=== PATIENT | female | born 1950 | race Hispanic/Latino ===

== ENCOUNTER 2017-04-20 17:21 | Emergency (ER) | payer MEDICARE ==
[~2017-04-20] VITALS: Ht 162.6 cm; Wt 108.9 kg
[~2017-04-20 17:21] MED LIST: ALLOPURINOL300 MG PO; ANTIVERT25 MG PEG; ANTIVERT25 MG PO; ASPIR 8181 MG PO; FUROSEMIDE40 MG PO; IBUPROFEN400 MG PO; LISINOPRIL2.5 MG PO; MACROBID 100 M100 MG PO; METFORMIN HCL500 MG PO; METOPROLOL TART25 MG PO; SIMVASTATIN40 MG PO; ZOFRAN ODT4 MG PO
--- NOTE | 2017-04-20 18:46 | Diagnostic Imaging Report ---
Examination: CT BRAIN WITHOUT CONTRAST History:Dizziness, vomiting. Comparison studies:Head CT dated 02/16/2016. Technique: Axial images were obtained from the skull base to the vertex. Coronal and sagittal images reconstructed from the axial data. Intravenous contrast: None Findings: Scalp: No abnormalities. Bones: No fractures, blastic or lytic lesions. Brain sulci: Appropriate for age. Ventricles: Normal in size and configuration. No hydrocephalus. Extra-axial space: No abnormalities. Parenchyma: Again demonstrated are confluent areas of hypoattenuation in the periventricular and subcortical white matter, nonspecific. No masses, hemorrhage, or acute or chronic cortical based vascular insults. Sellar/suprasellar region: No abnormalities. Craniocervical junction: Patent foramen magnum. No Chiari one malformation. Incidental findings: Atherosclerotic calcification of the cavernous and supraclinoid internal carotid arteries. Impression: 1. No new or acute intracranial abnormalities. No change from prior head CT dated 02/16/2016. 2. Unchanged mild chronic microvascular ischemic change. Signed by: Dr. Gema Licona M.D. on 04/20/2017 6:43 PM
[2017-04-20] MEDS ORDERED: ONDANSETRON HCL INJ 2 MG/ML VIAL IV STA (18:49)
[2017-04-20] MEDS ORDERED: ONDANSETRON HCL 4 MG ORAL DISINTEGRATING TAB PO ONE (19:45)
[2017-04-20] MEDS ORDERED: ONDANSETRON HCL 4 MG ORAL DISINTEGRATING TAB ONE (19:46)
[2017-04-20 20:13] LABS: BASOPHILS # (AUTO) 0.1 (0.0-0.1); BASOPHILS % 0.4 % (0.0-1.0); EOSINOPHILS # (AUTO) 0.3 (0.0-0.4); EOSINOPHILS % 2.4 % (0.0-6.0); HEMATOCRIT 41.3 % (34.2-44.1); HEMOGLOBIN 13.6 g/dL (12.0-16.0); LYMPHOCYTES # (AUTO) 1.8 (1.0-3.2); LYMPHOCYTES % 13.3 % (18.0-39.1); MEAN CORPUSCULAR HGB CONC 32.9 g/dL (31-35); MONOCYTES # (AUTO) 0.4 (0.2-0.8); MONOCYTES % 2.9 % (4.4-11.3); NEUTROPHILS # (AUTO) 11.1 (2.1-6.9); NEUTROPHILS % 80.5 % (38.7-80.0); PLATELET COUNT 276 x10e3/uL (140-360); RED BLOOD COUNT 4.54 x10e6/uL (3.6-5.1); RED CELL DISTRIBUTION WIDTH 13.4 % (11.7-14.4)
[2017-04-20 20:33] LABS: ALBUMIN 3.9 g/dL (3.5-5.0); ANION GAP 14.4 mmol/L (8-16); CALCIUM 9.9 mg/dL (8.4-10.2); CREATININE, SERUM 1.09 mg/dL (0.57-1.11)
[2017-04-20 20:34] LABS: POTASSIUM 5.4 mmol/L (3.5-5.1)
[2017-04-20 20:40] LABS: CREATINE KINASE MB 1.6 ng/mL (0.00-5.00); TROPONIN I 0.002 ng/mL (0-0.300)
[2017-04-20 21:17] LABS: BILIRUBIN,URINE NEGATIVE (NEGATIVE); CLARITY,URINE SL CLOUDY (CLEAR); COLOR,URINE YELLOW (YELLOW); KETONES,URINE 1+ (NEGATIVE); LEUKOCYTE ESTERASE ,URINE 2+ (NEGATIVE); NITRITE,URINE NEGATIVE (NEGATIVE); PROTEIN,URINE DIPSTICK TRACE (NEGATIVE); URINE UROBILINOGEN 0.2 mg/dL (0.2 - 1)
[2017-04-20 21:23] VITALS: BP 128/62
[2017-04-20 21:28] LABS: BACTERIA,URINE FEW /HPF; EPITHELIAL CELLS,URINE FEW /LPF
[2017-04-21] MEDS ORDERED: DIAZEPAM 5 MG TAB PO SCH (09:00)
== END 2017-04-20 21:31 | disposition home or self-care (01) ==
LOC: ER 17:21
DX: H81.41 Vertigo of central origin, right ear (principal); N30.00 Acute cystitis without hematuria; I10 Essential (primary) hypertension; E11.9 Type 2 diabetes mellitus without complications; E78.5 Hyperlipidemia, unspecified
CPT/HCPCS: 36415; 70450; 80053; 81001; 82550; 82553; 84484; 85025; 87086; 99283

== ENCOUNTER 2017-11-24 19:38 | Inpatient (IN) | payer MEDICARE ==
[~2017-11-24] VITALS: Ht 160 cm; Wt 108.9 kg
[2017-11-24] MEDS ORDERED: KETOROLAC TROMETHAMINE 60 MG/2 ML VIAL ONE (20:12)
[2017-11-24] MEDS ORDERED: GLIPIZIDE-METF1 EAC2 PO (20:30)
[2017-11-24] MEDS ORDERED: LOSARTAN POTASS25 MG PO (20:30)
[2017-11-24 20:41] LABS: BASOPHILS % 0.2 % (0.0-1.0); EOSINOPHILS # (AUTO) 0.5 (0.0-0.4); EOSINOPHILS % 2.7 % (0.0-6.0); HEMATOCRIT 39.6 % (34.2-44.1); HEMOGLOBIN 12.9 g/dL (12.0-16.0); LYMPHOCYTES # (AUTO) 3.1 (1.0-3.2); LYMPHOCYTES % 17.7 % (18.0-39.1); MEAN CORPUSCULAR HEMOGLOBIN 30.1 pg (28-32); MEAN CORPUSCULAR HGB CONC 32.6 g/dL (31-35); MEAN CORPUSCULAR VOLUME 92.3 fL (81-99); MONOCYTES # (AUTO) 1.1 (0.2-0.8); MONOCYTES % 6.4 % (4.4-11.3); NEUTROPHILS # (AUTO) 12.6 (2.1-6.9); NEUTROPHILS % 72.7 % (38.7-80.0); PLATELET COUNT 275 x10e3/uL (140-360); RED BLOOD COUNT 4.29 x10e6/uL (3.6-5.1); RED CELL DISTRIBUTION WIDTH 14.1 % (11.7-14.4)
[2017-11-24 20:50] LABS: CLARITY,URINE CLOUDY (CLEAR); COLOR,URINE YELLOW (YELLOW)
[2017-11-24 20:51] LABS: BILIRUBIN,URINE 1+ (NEGATIVE); KETONES,URINE TRACE (NEGATIVE); LEUKOCYTE ESTERASE ,URINE 2+ (NEGATIVE); NITRITE,URINE NEGATIVE (NEGATIVE); PROTEIN,URINE DIPSTICK 2+ (NEGATIVE); URINE UROBILINOGEN 1 mg/dL (0.2 - 1)
[2017-11-24 20:55] LABS: BACTERIA,URINE MODERATE /HPF; EPITHELIAL CELLS,URINE RARE /LPF; MUCUS,URINE FEW (RARE); RBC,URINE 21-50 /HPF (0-5); WBC,URINE (MAN) 21-50 /HPF (0-5)
[2017-11-24 20:58] LABS: ALBUMIN 3.3 g/dL (3.5-5.0); ALBUMIN/GLOBULIN RATIO 0.9 (0.8-2.0); ANION GAP 16.2 mmol/L (8-16); CALCIUM 9.4 mg/dL (8.4-10.2); CREATININE, SERUM 1.73 mg/dL (0.57-1.11); POTASSIUM 4.2 mmol/L (3.5-5.1)
[2017-11-24] MEDS ORDERED: SODIUM CHLORIDE 0.9% 1000ML 1,000 ML IV SCH (21:30)
[2017-11-24] MEDS ORDERED: CEFTRIAXONE SOD 1 GM VIAL IM ONE (21:30)
[2017-11-24] MEDS ORDERED: DIATRIZOATE MEGL/DIATRIZOA SOD 30 ML BTL PO ONE (21:35)
[2017-11-24 21:44] LABS: AMYLASE 59 U/L (25-125); LIPASE 14 U/L (8-78)
[2017-11-24] MEDS ORDERED: CEFTRIAXONE SOD 1 GM VIAL IV ONE (21:45)
--- NOTE | 2017-11-24 22:50 | Diagnostic Imaging Report ---
EXAM: CT ABDOMEN/PELVIS WO DATE: 11/24/2017 9:24 PM INDICATION: \S\abd pain/vag bleed- IV contrast only \[id number] \S\[id number] COMPARISON: 03/15/2016 TECHNIQUE: The abdomen and pelvis were scanned using a multidetector helical scanner. Coronal and sagittal reformations were obtained. IV Contrast: 0 ml Isovue 300/370 FINDINGS: Lack of IV contrast decreases sensitivity in evaluating abdominal and pelvic organs. LOWER THORAX: No consolidations. Partially imaged pacing leads and mitral annulus calcifications. LIVER/BILIARY: Probable hepatic steatosis (HU 36, less than 40). Otherwise grossly unremarkable noncontrast appearance. GALLBLADDER: Cholecystectomy SPLEEN: Unremarkable PANCREAS: Unremarkable ADRENALS: No nodules KIDNEYS: No stones. No hydronephrosis. GI TRACT: No wall thickening or evidence of obstruction. Normal appendix. Diverticulosis. VESSELS: Atherosclerotic calcifications are noted, diffuse of the branch vessels. PERITONEUM/RETROPERITONEUM: No free air or fluid LYMPH NODES: No lymphadenopathy REPRODUCTIVE ORGANS/BLADDER: Prominent uterine size, similar to prior. Unremarkable bladder SOFT TISSUES: Rectus muscle diastases BONES: Multilevel degenerative changes. IMPRESSION: 1. No acute abnormality on noncontrast evaluation. 2. Prominent uterine size for age. Given vaginal bleeding, consider follow-up pelvic ultrasound. Signed by: Dr Palak Gorman MD on 11/24/2017 10:47 PM
--- NOTE | 2017-11-24 23:14 | Diagnostic Imaging Report ---
EXAM: US TRANSVAGINAL INDICATION: \S\VAG BLEEDING COMPARISON: None TECHNIQUE: Grayscale transverse and sagittal transabdominal and transvaginal images were obtained of the pelvis. Transvaginal images were necessary to better assess anatomic detail. The ovaries were examined with grayscale, color Doppler, and spectral waveform analysis. FINDINGS: Uterus Orientation: Normal Size: 11.1 x 6.4 x 6.7 cm Mass: None Cervix: Normal Endometrium: Thickness: 4.4 cm, markedly thickened. Appearance: Heterogeneous echotexture without focal thickening. Mild internal vascularity. Right ovary: Not visualized. Left ovary: Not visualized. Adnexa: No masses Cul-de-sac: No free fluid IMPRESSION: Markedly thickened endometrial stripe. Differential includes endometrial hyperplasia, polyps, or neoplasm. Recommend gynecology consult and tissue sampling. Signed by: Dr Palak Gorman MD on 11/24/2017 11:10 PM
[2017-11-25] VITALS (9 sets, daily range): BP systolic 72–133; BP diastolic 41–75
[2017-11-25] MEDS ORDERED: ONDANSETRON HCL INJ 2 MG/ML VIAL IV PRN ×2 (00:15→12:00)
[2017-11-25] MEDS ORDERED: MORPHINE SULFATE 2 MG/ML SYR IV PRN (00:15)
[2017-11-25] MEDS ORDERED: SODIUM CHLORIDE 0.9% 1000ML 1,000 ML IV ONE (03:33)
[2017-11-25 06:18] LABS: BASOPHILS % 0.2 % (0.0-1.0); EOSINOPHILS # (AUTO) 0.5 (0.0-0.4); EOSINOPHILS % 3.7 % (0.0-6.0); HEMATOCRIT 35.5 % (34.2-44.1); HEMOGLOBIN 11.6 g/dL (12.0-16.0); LYMPHOCYTES # (AUTO) 2.4 (1.0-3.2); LYMPHOCYTES % 16.5 % (18.0-39.1); MEAN CORPUSCULAR HEMOGLOBIN 29.9 pg (28-32); MEAN CORPUSCULAR HGB CONC 32.7 g/dL (31-35); MEAN CORPUSCULAR VOLUME 91.5 fL (81-99); MONOCYTES # (AUTO) 1.3 (0.2-0.8); MONOCYTES % 8.8 % (4.4-11.3); NEUTROPHILS # (AUTO) 10.2 (2.1-6.9); NEUTROPHILS % 70.4 % (38.7-80.0); PLATELET COUNT 247 x10e3/uL (140-360); RED BLOOD COUNT 3.88 x10e6/uL (3.6-5.1); RED CELL DISTRIBUTION WIDTH 14.1 % (11.7-14.4)
[2017-11-25 06:38] LABS: ALBUMIN/GLOBULIN RATIO 0.9 (0.8-2.0); CALCIUM 9.1 mg/dL (8.4-10.2); CREATININE, SERUM 1.25 mg/dL (0.57-1.11)
[2017-11-25] MEDS ORDERED: ACETAMINOPHEN 325 MG TAB PO PRN (09:45)
[2017-11-25] MEDS ORDERED: DEXTROSE 50% SYRINGE 50 ML IV PRN (09:45)
[2017-11-25] MEDS: CEFTRIAXONE SOD 1 GM VIAL IV SCH ×2 (10:57→21:04)
--- NOTE | 2017-11-25 12:29 | History and Physical ---
CHIEF COMPLAINT: Vaginal bleeding. HISTORY OF PRESENT ILLNESS: A 67-year-old female morbidly obese with known type 2 diabetes and hypertension who has had this vaginal bleeding ongoing for the last 6 months in which she recently saw a [facility] TECHNICIAN doctor several months ago and at that time was supposed to do a "surgery," but was found to be hypokalemic and surgery was deferred. Patient reports that she was given some sort of medicine by the OB-[facility]AT[facility] TECHNICIAN doctor and her vaginal bleeding stopped and she did not follow up with that physician. Today, she reports having vaginal bleeding ongoing for the last 2 weeks. She reports having heavy vaginal bleeding. She denies any chest pain, palpitations, fever, cough, congestion, or any other complaints. Patient did not call her PCP or her OB-[facility] TECHNICIAN and felt it was much easier just to come to the ER to be further evaluated. Here imaging study, the ultrasound shows enlargement of her endometrium. Patient was seen and evaluated at bedside on the medical floor and currently doing well with no other complaints. Vital signs were stable. Hemoglobin was stable as well. Patient is still having continuous vaginal bleeding according to the nursing staff. REVIEW OF SYSTEMS PERTINENT POSITIVE: Vaginal bleeding. PERTINENT NEGATIVE: Denies any chest pain, palpitation, nausea, vomiting, diarrhea, dysuria, hematuria, frequency, urgency, lightheadedness, dizziness, abdominal pain, headache, shortness of breath, cough, congestion, fever, or any other complaints. The rest of 14-point review of systems have been reviewed with the patient and are negative. ALLERGIES: MINOCYCLINE AND PENICILLIN. HOME MEDICATIONS: Furosemide 40 mg daily, lisinopril 5 mg daily, metoprolol tartrate 25 mg p.o. b.i.d., simvastatin 40 mg daily, aspirin 81 mg daily, allopurinol 300 mg daily, glipizide metformin 5/500 one tab p.o. t.i.d., and meclizine 25 mg daily. PAST MEDICAL HISTORY: Hypertension, dizziness, diabetes, morbidly obese, and vaginal bleeding. SURGICAL HISTORY: Reports none. FAMILY: Hypertension and diabetes. SOCIAL HISTORY: No drugs. No alcohol. Does not smoke. . Good social support. VITAL SIGNS: Temperature is 99, pulse 99, respiratory rate is 18, blood pressure is 110/50, and pulse ox is 93% on room air. LAB FINDINGS: White count of 14.5, hemoglobin is 11.6, hematocrit is 35.5, and platelets of 247. Chemistry: Sodium , potassium is 4, chloride 107, bicarb 23, anion gap of 15, BUN is 25, creatinine is 1.2, glucose 140, and calcium 9.1. Total bilirubin is 0.4, AST 9, ALT 6, and albumin is 3. Lipase is 14. Urinalysis shows many rbc's and many wbc's. MICROBIOLOGY: Urine culture is pending. IMAGING STUDIES: Transvaginal ultrasound shows prominent uterine size for age with evidence of vaginal bleeding. CT abdomen and pelvis showed enlarged uterus. Transvaginal ultrasound shows markedly thickened endometrial stripe and [employer] [employer] TECHNICIAN consult recommended. PHYSICAL EXAM GENERAL: Not in acute distress, alert and oriented x3, cooperative on exam. HEENT: Head: Normocephalic, atraumatic. Eyes: Pupils equal and reactive to light bilaterally. Extraocular movements intact bilaterally. NECK: Supple with good range of motion throughout. No evidence of any erythema or exudates in the posterior pharynx, has poor dentition. PULMONARY: Clear to auscultation bilaterally. No wheezing, no rales, no rhonchi. No crackles appreciated. CARDIOVASCULAR: Positive S1 and S2. No murmurs, rubs, or gallops appreciated. ABDOMEN: Soft, nondistended, nontender to palpation. Bowel sounds present. MUSCULOSKELETAL: Strength is 5/5 throughout. No evidence of any musculoskeletal deficit on examination. No weakness appreciated. NEUROLOGIC: Cranial nerves II-XII grossly intact. No evidence of any neurologic deficits on exam. SKIN: Intact. Warm to touch. Good cap refill. PSYCHIATRIC: Normal affect and mood. EXTREMITIES: No edema. Good range of motion throughout. IMPRESSION 1. Vaginal bleeding ongoing for more than 2 weeks now. 2. Type 2 diabetes. 3. Hypertension. 4. Acute kidney injury secondary to prerenal azotemia from dehydration. 5. Urinary tract infection. PLAN: At this time, the patient will be on IV antibiotics for probable UTI. Monitor urine cultures. We will consult with OB[facility] TECHNICIAN in relation to her vaginal bleeding and follow the recommendations. In relation to acute kidney injury, it is currently resolved and will continue to monitor. Put on insulin sliding scale for her diabetes and resume all her antihypertensive medications at home. We are going hold all blood thinners including aspirin at this time due to the vaginal bleeding. We are going put VLADISLAV hosharley for DVT prophylaxis. She is currently on a diabetic diet as well. Otherwise, once we get recommendations from [employer] [employer] TECHNICIAN, we can determinate next plan of course, course of action. We will get a.m. labs. Job#: [id number] SADA
[2017-11-25] MEDS: METOPROLOL TARTRATE 25 MG TAB PO SCH (17:01)
--- NOTE | 2017-11-25 19:11 | Consultation ---
DATE OF CONSULTATION: November 25, 2017 CARDIOLOGY CONSULTATION REASON FOR CONSULTATION: History of CHF and hypertension. CHIEF COMPLAINT: Vaginal bleeding. HISTORY OF PRESENT ILLNESS: Patient is a 67-year-old female with history of a weak heart, per the patient, diagnosed 14 years ago when she was feeling unwell. At that time, she had a defibrillator placed and she has had several generator changes since then. She has never been shocked, as far as she knows. She is unsure how weak her heart was and when her most recent echocardiogram was. Denied ever having any RI or history of cardiac catheterization. Denies orthopnea, PND or lower extremity edema. Her chief complaint on presentation was vaginal bleeding which has been worsening for which she is admitted to be evaluated by SHE[facility]. REVIEW OF SYSTEMS: Is as above, otherwise negative. PAST MEDICAL HISTORY: Hypertension and hyperlipidemia. Chronic systolic heart failure. Diabetes, morbid obesity, vaginal bleeding. PAST SURGICAL HISTORY: None. FAMILY HISTORY: Hypertension and diabetes. SOCIAL HISTORY: Denies any smoking, alcohol or drug use. PHYSICAL EXAMINATION: VITALS: Temperature 99, pulse 99, respiratory rate 18, blood pressure 110/50, satting 93% on room air. EYES: Conjunctivae clear. EARS, NOSE, MOUTH AND THROAT: Normal mucosa, no pallor or bleeding. NECK: Could not assess jugular venous distention due to body habitus. MUSCULOSKELETAL: Normal muscle tone and strength, no atrophy or abnormal movements. EXTREMITIES: No clubbing or cyanosis. SKIN: No venostasis changes or ulcers. GENERAL: Well-developed, well-nourished, obese female. CARDIOVASCULAR: PMI could not be palpated due to body habitus. Regular S1 and S2. No murmurs, rubs or gallops. Normal carotid pulses. Palpable femoral pulses. Palpable pedal pulses. No peripheral edema or varicosities. RESPIRATORY: No respiratory distress. Lungs are clear to auscultation bilaterally. ABDOMEN: Soft nontender, no masses. NEURO AND PSYCH: Alert and oriented to person, place and time. Normal affect. HOME MEDICATIONS AND CURRENT INPATIENT MEDICATIONS: Reviewed. LABORATORY DATA: Reviewed. IMAGING DATA: Reviewed. TELEMETRY: Reviewed. Normal sinus rhythm. ASSESSMENT: 1. Chronic systolic heart failure. 2. Vaginal bleeding. 3. Hypertension. 4. Morbid obesity. 5. Hyperlipidemia. PLAN: Continue her home CHF medications, metoprolol 25 mg daily, lisinopril 5 mg daily and Lasix 40 mg daily. Will get echocardiogram to evaluate her LV function. Volume status is very difficult to assess given the patient's body habitus, but appears euvolemic at this time. No aspirin or anticoagulation given. Ongoing bleeding and no prior history of coronary artery disease. Thank you for this consult. We will continue to follow. Job#: [id number] ANTONIO
[2017-11-25] MEDS: SIMVASTATIN 40 MG TAB PO SCH (20:58)
[2017-11-26] VITALS (7 sets, daily range): BP systolic 87–113; BP diastolic 50–65
[2017-11-26 05:13] LABS: BASOPHILS % 0.3 % (0.0-1.0); EOSINOPHILS # (AUTO) 0.4 (0.0-0.4); HEMATOCRIT 34.8 % (34.2-44.1); HEMOGLOBIN 11.3 g/dL (12.0-16.0); LYMPHOCYTES # (AUTO) 2.1 (1.0-3.2); LYMPHOCYTES % 14.4 % (18.0-39.1); MEAN CORPUSCULAR HEMOGLOBIN 30.1 pg (28-32); MEAN CORPUSCULAR HGB CONC 32.5 g/dL (31-35); MEAN CORPUSCULAR VOLUME 92.8 fL (81-99); MONOCYTES # (AUTO) 1.1 (0.2-0.8); MONOCYTES % 7.8 % (4.4-11.3); NEUTROPHILS # (AUTO) 10.8 (2.1-6.9); NEUTROPHILS % 74.1 % (38.7-80.0); PLATELET COUNT 199 x10e3/uL (140-360); RED BLOOD COUNT 3.75 x10e6/uL (3.6-5.1); RED CELL DISTRIBUTION WIDTH 13.9 % (11.7-14.4)
[2017-11-26 05:41] LABS: ANION GAP 15.3 mmol/L (8-16); BLOOD UREA NITROGEN 15 mg/dL (7-26); BUN/CREATININE RATIO 18 (6-25); CALCIUM 9.2 mg/dL (8.4-10.2); CARBON DIOXIDE 22 mmol/L (22-29); CHLORIDE 105 mmol/L (98-107); CREATININE, SERUM 0.84 mg/dL (0.57-1.11); EST GLOMERULAR FILTRATION RATE > 60 ML/MIN (60-); GLUCOSE 143 mg/dL (74-118); POTASSIUM 4.3 mmol/L (3.5-5.1); SODIUM 138 mmol/L (136-145)
[2017-11-26 07:30] LABS: PLATELET ESTIMATE ADEQUATE; PLATELET MORPHOLOGY COMMENT NORMAL; RBC MORPHOLOGY COMMENT NORMAL
[2017-11-26] MEDS: LISINOPRIL 2.5 MG TAB PO SCH (09:00)
[2017-11-26] MEDS: METOPROLOL TARTRATE 25 MG TAB PO SCH ×2 (09:00→17:00)
[2017-11-26] MEDS: FUROSEMIDE 40 MG TAB PO SCH (09:00)
[2017-11-26] MEDS: CEFTRIAXONE SOD 1 GM VIAL IV SCH ×2 (10:00→21:51)
--- NOTE | 2017-11-26 14:39 | Progress Note ---
DATE: November 26, 2017 CARDIOLOGY PROGRESS NOTE SUBJECTIVE: No major events overnight. No chest pain, shortness of breath, orthopnea or PND. REVIEW OF SYSTEMS: Significant for vaginal bleeding, otherwise as above. OBJECTIVE VITAL SIGNS: Temperature 97.2, heart rate 71, respiratory rate 20, blood pressure 104/55, satting 96% on room air. GENERAL: A well-developed, obese female. CARDIOVASCULAR: PMI could not be palpated due to body habitus. Regular S1/S2. No murmurs, rubs or gallops. Normal carotid pulses. Palpable femoral pulses. Palpable pedal pulses. No peripheral edema or varicosities. RESPIRATORY: No respiratory distress. Lungs are clear to auscultation bilaterally. ABDOMEN: Soft, nontender. NEURO AND PSYCH: Alert and oriented to person, place and time. Normal affect. CURRENT INPATIENT MEDICATIONS: Reviewed. LABORATORY DATA: Reviewed. IMAGING DATA: Reviewed. TELEMETRY DATA: Reviewed. Normal sinus rhythm. ECHOCARDIOGRAM: Done today, reviewed. A technically very difficult study. However, grossly normal LV size and function with marked concentric LV hypertrophy. LVEF estimated to be approximately 60%. No hemodynamically significant valvular abnormalities noted by Doppler exam. ASSESSMENT 1. Chronic systolic heart failure. 2. Vaginal bleeding. 3. Hypertension. 4. Morbid obesity. 5. Hyperlipidemia. PLAN: Continue her home cardiovascular medications. Echocardiogram shows grossly normal LV function. Currently euvolemic. No aspirin or anticoagulation given ongoing bleeding. No prior history of coronary artery disease. Thank you for this consult. Will continue to follow. Job#: [id number] KAREN
[2017-11-26] MEDS: SIMVASTATIN 40 MG TAB PO SCH (21:51)
[2017-11-27 00:16] VITALS: BP 90/46
[2017-11-27 00:45] VITALS: BP 93/49
[2017-11-27 05:03] VITALS: BP 93/41
[2017-11-27 05:27] LABS: BASOPHILS % 0.3 % (0.0-1.0); EOSINOPHILS # (AUTO) 0.5 (0.0-0.4); EOSINOPHILS % 3.9 % (0.0-6.0); HEMATOCRIT 35.2 % (34.2-44.1); HEMOGLOBIN 11.7 g/dL (12.0-16.0); LYMPHOCYTES # (AUTO) 2.6 (1.0-3.2); LYMPHOCYTES % 21.5 % (18.0-39.1); MEAN CORPUSCULAR HEMOGLOBIN 30.2 pg (28-32); MEAN CORPUSCULAR HGB CONC 33.2 g/dL (31-35); MONOCYTES % 7.9 % (4.4-11.3); NEUTROPHILS % 65.7 % (38.7-80.0); PLATELET COUNT 247 x10e3/uL (140-360); RED BLOOD COUNT 3.87 x10e6/uL (3.6-5.1); RED CELL DISTRIBUTION WIDTH 13.6 % (11.7-14.4)
[2017-11-27 08:00] VITALS: BP 103/75
[2017-11-27] MEDS: LISINOPRIL 2.5 MG TAB PO SCH (09:00)
[2017-11-27] MEDS: METOPROLOL TARTRATE 25 MG TAB PO SCH (09:00)
[2017-11-27] MEDS: FUROSEMIDE 40 MG TAB PO SCH (09:00)
[2017-11-27] MEDS: CEFTRIAXONE SOD 1 GM VIAL IV SCH (10:00)
--- NOTE | 2017-11-27 11:54 | Discharge Summary ---
DISCHARGE DIAGNOSES: 1. Vaginal bleeding with endometrial thickening. Patient was evaluated by [facility]IM[facility] CARETAKER after 2 days and recommends outpatient endometrial sampling. 2. Type 2 diabetes. 3. Hypertension. 4. Acute kidney injury secondary to dehydration. CONSULTANTS: Cardiology and [facility]ETAKER. VITAL SIGNS: Temperature is 97.6, pulse is 75, respiratory rate is 18, blood pressure 100/50, pulse ox 97% on room air. LAB FINDINGS: Show a white count of 12, hemoglobin 11.7, hematocrit is 35, MCV 91, platelets of 247. Chemistry: Sodium 138, potassium is 4.3, chloride is 105, bicarb is 22, anion gap of 15 which is normal, BUN 15, creatinine was 0.8, glucose 147, calcium is 9.2. Total bilirubin is 0.4. LFTs were normal. Lipase was 14. Albumin 3. Urinalysis: WBCs 21-50, RBCs 21-50, leukocyte esterase 2+, blood 3+. MICROBIOLOGY: Urine cultures showed mixed gerardo contamination. IMAGING STUDIES: Transvaginal ultrasound showed markedly thickened endometrial strip. CT abdomen and pelvis: No acute abnormality on noncontrast evaluation. Prominent uterine size for age. HOSPITAL COURSE: A 67-year-old female, morbidly obese with known type 2 diabetes, who has been dealing with vaginal bleeding ongoing for 6 months now. Patient reports that she came in to have her vaginal bleeding further evaluated. She had seen an OB-WILD [facility]IMAL CARETAKER earlier this year about 6 months ago and did not follow up accordingly with that laborer shellfish processing. She does not know the name of her OB-[facility]AL CARETAKER doctor, and instead we consulted another physician to come evaluate the patient. Patient was not evaluated until a little less than 48 hours after initial consultation to be further evaluated. Final recommendations were for her to do an endometrial sampling in the office due to her comorbidities though the patient's comorbidities will not change even on discharge. Cardiology was consulted for clearance because in the event the patient needed a D\T\C, but instead it was not performed and wants to do an outpatient endometrial sampling. While here, patient did well with no complaints. She does have some evidence of vaginal bleeding according to the nursing staff, but her hemoglobin maintained stable. On discharge it was 11.7. At this time, the patient will be under observation and not inpatient. There was a delay by the OB-[facility]IMAL CARETAKER service to evaluate the patient on a prompt time period. On discharge the patient is doing well with no other complaints. She is back to baseline with no other issues. Patient does not have a UTI based on the microbiology results being a contaminant. On the day of discharge, vital signs stable, labs reviewed and stable. Patient seen and evaluated and examined thoroughly on the day of discharge with no other complaints. Patient verbalized understanding and agrees to plan of care, to follow up accordingly as an outpatient with her primary care physician in 1 week and especially OB-[facility] CARETAKER on Wednesday on November 29, 2017, in which the information, address and phone number have been given to the patient in order for her to call and make an appointment. DISCHARGE MEDICATIONS: See med reconciliation form. DISPOSITION: To home. CONDITION: Stable. DIET: Heart healthy diabetic. FOLLOWUP: With her PCP in 1 week and OB-[facility]IM[facility] CARETAKER on November 29, 2017, on Wednesday. In the event of any worsening symptoms, patient advised to come back to the ED for further evaluation. Discharge summary took greater than 35 minutes. USMAN BOWEN MD Job#: [id number] EV
[2017-11-27 12:00] VITALS: BP 127/61
[2017-11-28 08:00] VITALS: BP 106/73
== END 2017-11-27 11:55 | disposition home or self-care (01) | DRG 760 ==
LOC: ER 19:38 → ERHOLD 11-25 00:15 → MED/SURG2 11-25 01:35
PROVIDERS: ADMIT Internal Medicine; ATTEND Internal Medicine
DX: N95.0 Postmenopausal bleeding (principal); N17.9 Acute kidney failure, unspecified; I50.22 Chronic systolic (congestive) heart failure; Z68.41 Body mass index [BMI] 40.0-44.9, adult; E11.9 Type 2 diabetes mellitus without complications; E86.0 Dehydration; N93.9 Abnormal uterine and vaginal bleeding, unspecified; I11.0 Hypertensive heart disease with heart failure; E78.5 Hyperlipidemia, unspecified; E66.01 Morbid (severe) obesity due to excess calories
CPT/HCPCS: 36415; 74176; 76830; 80048; 80053; 81001; 82150; 82948; 83690; 85025; 87086; 93306; 96361; 99284; J0696; J1885; J7030

== ENCOUNTER 2019-07-13 20:39 | Observation (INO) | payer MEDICARE ==
[~2019-07-13] VITALS: Ht 160 cm; Wt 115.7 kg
[~2019-07-13 20:39] MED LIST changes: +GLIMEPIRIDE2 MG PO; +GLIPIZIDE-METF1 EAC2 PO; +LEVOTHYROXINE50 MCG PO; +LISINOPRIL10 MG PO; +LOSARTAN POTASS25 MG PO; +NAPROXEN250 MG PO; +PIOGLITAZONE HC45 MG PO
[2019-07-13] MEDS ORDERED: FUROSEMIDE INJ 10 MG/ML 4 ML VIAL IV ONE (20:45)
[2019-07-13 20:54] LABS: BASOPHILS % 0.2 % (0.0-1.0); EOSINOPHILS # (AUTO) 0.2 (0.0-0.4); EOSINOPHILS % 3.3 % (0.0-6.0); HEMATOCRIT 39.5 % (34.2-44.1); HEMOGLOBIN 12.2 g/dL (12.0-16.0); LYMPHOCYTES # (AUTO) 1.7 (1.0-3.2); LYMPHOCYTES % 28.5 % (18.0-39.1); MEAN CORPUSCULAR HEMOGLOBIN 29.8 pg (28-32); MEAN CORPUSCULAR HGB CONC 30.9 g/dL (31-35); MEAN CORPUSCULAR VOLUME 96.6 fL (81-99); MONOCYTES # (AUTO) 0.6 (0.2-0.8); MONOCYTES % 9.7 % (4.4-11.3); NEUTROPHILS # (AUTO) 3.5 (2.1-6.9); NEUTROPHILS % 58.1 % (38.7-80.0); PLATELET COUNT 200 x10e3/uL (140-360); RED BLOOD COUNT 4.09 x10e6/uL (3.6-5.1); RED CELL DISTRIBUTION WIDTH 14.4 % (11.7-14.4)
--- NOTE | 2019-07-13 21:14 | NUR ---
notified of low BP at this time. Instructed not to administer 40 mg IV lasix at this time. Patient did take 40 mg in the morning and 40 mg at 1700.
[2019-07-13 21:15] LABS: ALBUMIN 3.6 g/dL (3.5-5.0); ANION GAP 11.7 mmol/L (8-16); CREATININE, SERUM 1.62 mg/dL (0.57-1.11); POTASSIUM 4.7 mmol/L (3.5-5.1)
[2019-07-13 21:21] LABS: CREATINE KINASE MB 0.5 ng/mL (0-5.0)
--- NOTE | 2019-07-13 22:22 | Diagnostic Imaging Report ---
EXAMINATION: CHEST 2 VIEWS INDICATION: Cough. Shortness of breath. COMPARISON: None FINDINGS: TUBES and LINES: None. Dual lead left-sided cardiac pacemaker. LUNGS: Lungs are well inflated. There are bibasilar atelectasis. Patchy density in the retrocardiac region on the lateral view may represent atelectasis versus infection in the proper clinical setting. There is mild prominence of the central pulmonary vasculature, consistent with pulmonary venous congestion. PLEURA: No pleural effusion or pneumothorax. HEART AND MEDIASTINUM: Cardiac size is moderately enlarged. There are atherosclerotic calcifications within the aorta. Widening of the mediastinum. BONES AND SOFT TISSUES: There are degenerative changes in the thoracic spine. Soft tissues are unremarkable. UPPER ABDOMEN: No free air under the diaphragm. IMPRESSION: 1. Bilateral pulmonary venous congestion. 2. Patchy density in the retrocardiac region on the lateral view may represent atelectasis versus infection in the proper clinical setting Signed by: Dr. Asad Kumar M.D. on 07/13/2019 10:18 PM
--- NOTE | 2019-07-13 22:28 | NUR ---
Patient noted to be tachypneic with exertion. MD notified.
[2019-07-13] MEDS ORDERED: CEFTRIAXONE SOD 1 GM/NS 50 ML 50 ML IV SCH (22:30)
[2019-07-13] MEDS ORDERED: AZITHROMYCIN 500MG/NS 250 ML 250 ML IV STA (22:30)
[2019-07-13 23:30] VITALS: BP 137/66
--- NOTE | 2019-07-13 23:51 | NUR ---
patient arrived to the floor from ER, turkish speaking primarily, using terrazzo worker ipad, oriented X 3, awake alert oriented to room, staff and environment, full assessment completed, home med reconciled, patient up with standby assistance, bed alarm acitvated, call light within reach, report no chest pain at this time
[2019-07-14] VITALS (10 sets, daily range): BP systolic 105–137; BP diastolic 53–72
[2019-07-14] MEDS: CEFTRIAXONE SOD 1 GM/NS 50 ML 50 ML IV SCH (04:31)
[2019-07-14] MEDS ORDERED: AZITHROMYCIN 500MG/NS 250 ML 250 ML IV SCH (06:00)
[2019-07-14] MEDS ORDERED: LEVOTHYROXINE SODIUM 25 MCG TABLET PO SCH (06:00)
--- NOTE | 2019-07-14 06:19 | NUR ---
H&P cc: cough/sob HPI: 69yoF, PCP , developed cough/sob, found to have retrocardiac PNA. PMH: syncope, vaginal bleeding, Chr Systolic CHF, Hypertensive heart ds, CKD3 due to DM2, hypothyroidism, gout PSHx: cholecystectomy, hysterectomy, PPM 2004 Allergies; see emr Fh/SH: ; no cigs Meds; see MAR ROS: no cp/f/c/s/N/V/D/ROCK/vision changes/skin rash/focal limb weakness/confusion v/s revd PE tired appearing anicteric ns1s2 reduced bs;Left>right soft nt nd no e/t skin dry flat affect alert and appropriate labs/meds revd A/P: 69yoF Left PNA- ceftriaxone/azithromycin CKD3 due to DM2- at baseline; hba1c/lipids CHronic systolic CHF- monitor fluid balance; lasix Hypertensive heart ds- cont home meds HLD- statin Hypothyroidism- cont synthroid Gout- cont allopurinol Physical deconditioning- PT Prop: heparin/pepcid dispo: flu screen Kali Waggoner MD, PhD.
[2019-07-14] MEDS ORDERED: DEXTROSE 50% SYRINGE 50 ML IV PRN (07:45)
[2019-07-14] MEDS ORDERED: METOPROLOL TARTRATE 25 MG TAB PO SCH (09:00)
[2019-07-14] MEDS: LORATADINE 10 MG TAB PO SCH (09:20)
[2019-07-14] MEDS: ASPIRIN 81 MG CHEW TAB PO SCH (09:20)
[2019-07-14] MEDS: INSULIN LISPRO 100 UNIT/1 ML 3ML VIAL SQ SCH ×3 (09:21→21:00)
[2019-07-14] MEDS: BENZONATATE 100 MG CAP PO SCH ×3 (09:21→21:23)
[2019-07-14] MEDS: ALLOPURINOL 300 MG TAB PO SCH (09:21)
[2019-07-14] MEDS: HEPARIN SOD (PORCINE) 5,000 UNIT/ML VIAL SC SCH ×2 (09:26→22:00)
[2019-07-14] MEDS: FUROSEMIDE 40 MG TAB PO SCH (10:15)
[2019-07-14] MEDS: GUAIFENESIN/DEXTROMETHORPHAN LIQD 5 ML UDC NG SCH ×2 (14:00→22:00)
--- NOTE | 2019-07-14 14:14 | NUR ---
WOUND CARE CONSULTATION PUP SCREEN RE: LOW ELIOT SCORE LOS=1 DAY Age=69 Eliot Score = 13 Visco Mattress Conservative PUP RECOMMENDATION: - Alternating Pressure Air Mattress - Bilateral Heel Protectors / Offload Heels with Pillows - Turn and Reposition Every 2 Hours Addendum: 07/14/19 at 1417 by Linda Garces RN Amended: Links added.
--- NOTE | 2019-07-14 17:00 | NUR ---
Pt will benefit from a RW for home use to improve gait safety upon D/C. Addendum: 07/14/19 at 2352 by Anthony Welch PT Amended: Links added.
--- NOTE | 2019-07-14 19:10 | NUR ---
Report given to oncoming nurse of patient's status. Resting in bed. No s/s of acute distress noted. Side rails upx2, call light within reach.
--- NOTE | 2019-07-14 19:15 | NUR ---
Patient received sitting up in bed. AAO x 3. Patient had no complaints of pain. Respirations even and non-labored . Safety measures in place. Patient instructed to call for assistance when needed. Call light within reach.
[2019-07-14] MEDS ORDERED: SIMVASTATIN 40 MG TAB PO SCH (21:00)
[2019-07-15] VITALS (7 sets, daily range): BP systolic 110–126; BP diastolic 51–80
[2019-07-15] MEDS: CEFTRIAXONE SOD 1 GM/NS 50 ML 50 ML IV SCH (02:21)
[2019-07-15] MEDS ORDERED: SODIUM CHLORIDE 0.9% 250ML 250 ML ONE (02:27)
--- NOTE | 2019-07-15 05:38 | NUR ---
IM- progress note O/N see below ROS: no cp/f/c/s/N/V/D/ROCK/vision changes/skin rash/focal limb weakness/confusion v/s revd PE tired appearing anicteric ns1s2 reduced bs;Left>right soft nt nd no e/t skin dry flat affect alert and appropriate labs/meds revd A/P: 69yoF Left PNA- ceftriaxone/azithromycin CKD3 due to DM2- at baseline; hba1c/LDL= 6.6/65 CHronic systolic CHF- monitor fluid balance; lasix Hypertensive heart ds- cont home meds HLD- statin Hypothyroidism- cont synthroid Gout- cont allopurinol Physical deconditioning- PT Prop: heparin/pepcid dispo: flu screen 3-21 cont care; f/u labs; Kali Waggoner MD, PhD.
[2019-07-15] MEDS: GUAIFENESIN/DEXTROMETHORPHAN LIQD 5 ML UDC NG SCH (06:09)
[2019-07-15] MEDS ORDERED: METOPROLOL TARTRATE 50 MG TAB PO ONE (06:30)
[2019-07-15] MEDS ORDERED: METOPROLOL TARTRATE INJ 1 MG/ML VIAL IV ONE (06:45)
--- NOTE | 2019-07-15 06:45 | NUR ---
Dr. Rochelle Waggoner notified of patient's HR fluctuating between 142 and 162 with a BP of 131/59. cutter grind tool technician not registering patient's rhythm as "paced". New orders received for 12 lead EKG; Metoprolol Tartrate 50 mg PO now, Metoprolol Tartrate 50 PO mg Q8H and Metoprolol Tartrate 5mg IV x 1.
--- NOTE | 2019-07-15 07:00 | NUR ---
Walking rounds done. Patient resting comfortably. BSSR given to oncoming nurse regarding patient's health status.
[2019-07-15 07:30] LABS: BASOPHILS % 0.3 % (0.0-1.0); EOSINOPHILS # (AUTO) 0.2 (0.0-0.4); EOSINOPHILS % 2.8 % (0.0-6.0); HEMATOCRIT 40.9 % (34.2-44.1); HEMOGLOBIN 12.6 g/dL (12.0-16.0); LYMPHOCYTES # (AUTO) 1.7 (1.0-3.2); LYMPHOCYTES % 26.2 % (18.0-39.1); MEAN CORPUSCULAR HGB CONC 30.8 g/dL (31-35); MEAN CORPUSCULAR VOLUME 97.4 fL (81-99); MONOCYTES # (AUTO) 0.5 (0.2-0.8); MONOCYTES % 8.3 % (4.4-11.3); NEUTROPHILS # (AUTO) 4.1 (2.1-6.9); NEUTROPHILS % 62.2 % (38.7-80.0); PLATELET COUNT 188 x10e3/uL (140-360); RED CELL DISTRIBUTION WIDTH 14.6 % (11.7-14.4)
[2019-07-15] MEDS: INSULIN LISPRO 100 UNIT/1 ML 3ML VIAL SQ SCH ×2 (07:30→11:30)
[2019-07-15 07:48] LABS: ANION GAP 13.6 mmol/L (8-16); CALCIUM 10.1 mg/dL (8.4-10.2); CREATININE, SERUM 1.6 mg/dL (0.57-1.11); POTASSIUM 4.6 mmol/L (3.5-5.1)
[2019-07-15] MEDS: BENZONATATE 100 MG CAP PO SCH (08:35)
[2019-07-15] MEDS: LORATADINE 10 MG TAB PO SCH (08:35)
[2019-07-15] MEDS: ALLOPURINOL 300 MG TAB PO SCH (08:35)
[2019-07-15] MEDS: ASPIRIN 81 MG CHEW TAB PO SCH (08:35)
[2019-07-15] MEDS: FUROSEMIDE 40 MG TAB PO SCH (09:00)
[2019-07-15] MEDS: HEPARIN SOD (PORCINE) 5,000 UNIT/ML VIAL SC SCH (10:28)
--- NOTE | 2019-07-15 12:22 | NUR ---
Spoke to Dr. Waggoner earlier today about dc plans. He plans to dc pt home later today.
[2019-07-15] MEDS ORDERED: LORATADINE10 MG PO (12:36)
[2019-07-15] MEDS ORDERED: METOPROLOL TART50 MG PO (12:36)
[2019-07-15] MEDS ORDERED: Guaifenesin/Dextromethorphan NG (12:36)
[2019-07-15] MEDS ORDERED: ZITHROMAX500 MG PO (12:36)
[2019-07-15] MEDS ORDERED: TESSALON PERLE100 MG PO (12:36)
[2019-07-15] MEDS ORDERED: KEFLEX500 MG PO (12:36)
--- NOTE | 2019-07-15 12:46 | NUR ---
D/C summary Primary dx: Left PNA- ceftriaxone/azithromycin Secondary Dx: CKD3 due to DM2- at baseline; hba1c/LDL= 6.6/65 CHronic systolic CHF- monitor fluid balance; lasix Hypertensive heart ds- cont home meds HLD- statin Hypothyroidism- cont synthroid Gout- cont allopurinol Physical deconditioning- PT Prop: heparin/pepcid dispo: flu screen 3-21 cont care; f/u labs; d/c home f/u pcp 1 week d/c>35mins stable Kali Waggoner MD, PhD.
[2019-07-15] MEDS ORDERED: METOPROLOL TARTRATE 50 MG TAB PO SCH (14:00)
== END 2019-07-15 13:20 | disposition home or self-care (01) ==
LOC: ER 20:39 → ERHOLD 23:15 → MED/SURG2 23:41 → INTOOBSV 07-15 07:55 → OBSVTOIN 07-15 07:55
PROVIDERS: ADMIT Internal Medicine; ATTEND Internal Medicine
DX: J15.9 Unspecified bacterial pneumonia (principal); I13.0 Hypertensive heart and chronic kidney disease with heart failure and stage 1 through stage 4 chronic kidney disease, or unspecified chronic kidney disease; I50.22 Chronic systolic (congestive) heart failure; N18.3 Chronic kidney disease, stage 3 (moderate); E11.22 Type 2 diabetes mellitus with diabetic chronic kidney disease; Z88.0 Allergy status to penicillin; Z88.8 Allergy status to other drugs, medicaments and biological substances; E78.5 Hyperlipidemia, unspecified; E03.9 Hypothyroidism, unspecified; M10.9 Gout, unspecified; Z79.82 Long term (current) use of aspirin
CPT/HCPCS: 36415 ×3; 71046; 80048; 80053; 80061; 82550; 82553; 82948 ×2; 83036; 83880; 84484; 85025 ×2; 87040; 87400; 93005; 96365; 97116 ×2; 97139; 97162; 97530 ×2; 99284; G0378 ×3; J0456 ×2; J0696 ×2; J1644 ×2; J1940; J7050; 99251